=== PATIENT | male | born 1955 | race Caucasian/White ===

== ENCOUNTER 2016-10-22 15:41 | Inpatient (IN) | payer OTHER ==
[~2016-10-22] VITALS: Ht 157.5 cm; Wt 68.0 kg
--- NOTE | 2016-10-22 15:50 | NUR ---
PT IS A 61 YEAR OLD MALE, PRESENTS TO ED [facility] WITH C/O GENERALIZED WEAKNESS AND HIGH BP. ON SCENE BS WAS 76. PT DENIES ANY PAIN. PT REPORTS PRESSURE ON TOP OF HEAD. PT REPORTS NAUSEA AT THIS TIME. PT REPORTS SLGITH DIZZINESS. BREATHING IS EVEN AND UNLABORED, NO S/S OF RESPRAITORY DISTRESS. SPEECH IS CLEAR AND APPROPRIATE. PT A/O X4. 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
[2016-10-22 16:39] LABS: BASOPHIL % 0.4 % (0-2); PLATELET COUNT 325 x10^3mcL (130-400); RED CELL DISTRIBUTION WIDTH 14.2 % (11.5-14.5)
[2016-10-22 16:48] LABS: CALCIUM 8.6 mg/dL (8.5-10.1); CARBON DIOXIDE 25.8 mmol/L (21-32); CHLORIDE SERUM 105 mmol/L (98-107); CREATININE SERUM 0.9 mg/dL (0.7-1.3); GFR1 > 60 mL/min; GLUCOSE SERUM 98 mg/dL (74-106); POTASSIUM SERUM 3.9 mmol/L (3.5-5.1); SODIUM SERUM 142 mmol/L (136-145)
[2016-10-22] MEDS ORDERED: LOVASTATIN20 MG PO (22:53)
[2016-10-22] MEDS ORDERED: LISINOPRIL5 MG PO (22:53)
[2016-10-22] MEDS ORDERED: FINASTERIDE5 M1 PO (22:54)
--- NOTE | 2016-10-22 22:58 | NUR ---
SEE DOWNTIME CHARTING
--- NOTE | 2016-10-22 23:59 | NUR ---
PT RESTING IN BED COMFORTABLY AT THIS TIME ASLEEP. NO S/S OF DISTRESS NOTED AT THIS TIME.
--- NOTE | 2016-10-22 23:59 | NUR ---
SEE DOWNTIME NOTES.
--- NOTE | 2016-10-23 03:40 | NUR ---
NO S/S OF PAIN OR DISTRESS NOTED. PT ASLEEP COMFORTABLY AT THIS TIME.
[2016-10-23 06:37] VITALS: BP 114/68
[2016-10-23 07:26] LABS: BASOPHIL % 0.5 % (0-2); PLATELET COUNT 283 x10^3mcL (130-400)
[2016-10-23 07:30] LABS: RED CELL DISTRIBUTION WIDTH 14.8 % (11.5-14.5)
[2016-10-23 07:54] LABS: CALCIUM 8.1 mg/dL (8.5-10.1); CARBON DIOXIDE 26.2 mmol/L (21-32); CHLORIDE SERUM 110 mmol/L (98-107); GFR1 > 60 mL/min; GLUCOSE SERUM 92 mg/dL (74-106); MAGNESIUM 2.1 mg/dL (1.8-2.4); PHOSPHOROUS 3.7 mg/dL (2.5-4.9); POTASSIUM SERUM 4.2 mmol/L (3.5-5.1); SODIUM SERUM 143 mmol/L (136-145)
--- NOTE | 2016-10-23 08:50 | NUR ---
PT VOICES WORRY DUE TO DISEASE PROCESS. VOICES HE IS AFRAID HE WILL NOT BE ABLE TO SUPPORT HIS FAMILY DUE TO HEALTH STATUS. PROVIDED [employer]. PT VOICES SOME RELIEF FOR LISTENING. CALL LIGHT WITHIN REACH.
[2016-10-23 10:20] VITALS: BP 147/93
--- NOTE | 2016-10-23 10:59 | NUR ---
ECHO IN PROGRESS. PT TOLERATING PROCEDURE WELL. TECH AT BEDSIDE.
--- NOTE | 2016-10-23 11:50 | NUR ---
ECHOCARDIOGRAM COMPLETED.
[2016-10-23 14:05] VITALS: BP 136/88
[2016-10-23 15:16] LABS: microscopic required? NO
--- NOTE | 2016-10-23 15:30 | NUR ---
UA SPECIMEN COLLECTED. TAKEN TO LAB.
--- NOTE | 2016-10-23 17:20 | NUR ---
PT IN FOWLERS, NO DISTRESS NOTED. PT ALERT ORIENTEDx4. DENIES HEADACHE, DIZZINESS. FOLLOWS COMMAND, SPEECH CLEAR. PT STATES FEELING MUCH BETTER THAN IN A.M. IV INFUSING WELL TO LAC. CALL LIGHT WITHIN REACH.
[2016-10-23 17:22] LABS: urine erythrocyte NEGATIVE (NEGATIVE)
[2016-10-23 17:24] LABS: AMPHETAMINE QUAL UR NONE DETECTED (NEG <=1000)
[2016-10-23 17:28] VITALS: BP 115/67
[2016-10-23 17:47] LABS: ALBUMIN 3.8 g/dL (3.4-5.0); PHOSPHOROUS 3.7 mg/dL (2.5-4.9); TOTAL PROTEIN, SERUM 7.9 g/dL (6.4-8.2)
[2016-10-23 17:48] LABS: ALKALINE PHOSPHATASE 94 U/L (46-116); ALT/SGPT 118 U/L (16-63); AST/SGOT 90 U/L (15-37); BILIRUBIN TOTAL 0.21 mg/dL (0.20-1.00); CHOLESTEROL 203 mg/dL (<200); HDL CHOLESTEROL 42 mg/dL (40-60); MAGNESIUM 2.2 mg/dL (1.8-2.4)
--- NOTE | 2016-10-23 20:19 | NUR ---
PT SEATED UP IN A CHAIR AT BEDSIDE DENIES DIZZINESS HAS SOME HEADACHE BEARABLE 3/10 PER PAIN ASSESSMENT V/S ON STABLE RANGE OFFERED SOME PAIN MEDS PT REFUSED WILL CALL THE NURSE IF PAIN PERSIST, PT KNOWS PRESENT PRESIDENT, TIME DATE AND YEAR ALSO CAN RECALL FAMILY MEMBERS NAME AND OWN BIRTHDAY, ABLE TO RECALL ACTIVITIES PRIOR COMING TO HOSP, DENIES NAUSEA OR VOMITING, NO CP OR PRESSURE TELE # 42 INPLACED SR IN THE MONITOR, IVF NS INFUSING @ 100CC/HR IV ACCESS @ LAC PATENT NON INFIL, REFUSED TO WEAR SCD'S AT THIS TIME, SKIN CDI, SHIFT ASSESSMENT DONE ATTENDED NEEDS CALL LIGHT AT REACH, CONT TO MONITOR.
[2016-10-23 21:38] VITALS: BP 119/68
[2016-10-24 05:49] VITALS: BP 118/68
--- NOTE | 2016-10-24 05:53 | NUR ---
NO SIGNIFICANT CHANGES DURING THE SHIFT, ABLE TO RECALL PREV ACTIVITIES, STRESSED SAFETY PREC, REMINDED TO USE THE CALL LIGHT FOR ASSISTANCE, CONT TO MONITOR.
[2016-10-24 07:19] LABS: BASOPHIL % 0.6 % (0-2); PLATELET COUNT 290 x10^3mcL (130-400); RED CELL DISTRIBUTION WIDTH 14.5 % (11.5-14.5)
[2016-10-24 07:30] LABS: CARBON DIOXIDE 24.9 mmol/L (21-32); CHLORIDE SERUM 110 mmol/L (98-107); CREATININE SERUM 0.9 mg/dL (0.7-1.3); GFR1 > 60 mL/min; GLUCOSE SERUM 93 mg/dL (74-106); POTASSIUM SERUM 3.8 mmol/L (3.5-5.1); SODIUM SERUM 142 mmol/L (136-145)
--- NOTE | 2016-10-24 08:45 | NUR ---
MEDICAL TEAM IN TO SEE PT. PT CALM AND RECEPTIVE OF CARE. VOICING HEALTH CONCERNS. WILL CONTINUE TO MONITOR.
[2016-10-24 09:41] VITALS: BP 145/79
--- NOTE | 2016-10-24 10:30 | NUR ---
PASSED MORNING MEDS. PT TOLERATED WELL. A&Ox4 EFFORTLESS BREATHING. NO DISTRESS NOTED. CALL LIGHT WITHIN REACH.
[2016-10-24] MEDS ORDERED: LISINOPRIL5 MG PO (13:22)
[2016-10-24] MEDS ORDERED: ASPIR 8181 MG PO (13:23)
[2016-10-24 14:11] VITALS: BP 145/79
--- NOTE | 2016-10-24 15:40 | NUR ---
DISCHARGE INSTRUCTIONS GIVEN TO PT. PT VERBALIZED UNDERSTANDING FOR FOLLOW UP APPOINTMENT AND PRESCRIPTION ORDERS. IV DC'D PT TOLERATED WELL, CATHETER INTACT, TELE BOX REMOVED. PT ESCORTED OUT OF UNIT SAFELY.
== END 2016-10-24 15:57 | disposition home or self-care (01) | DRG 199 ==
LOC: ED 15:41 → DU 18:45
PROVIDERS: Emergency Medicine; Family Medicine; ADMIT Family Medicine
DX: I16.0 Hypertensive urgency (principal); G93.41 Metabolic encephalopathy; G45.9 Transient cerebral ischemic attack, unspecified; E87.8 Other disorders of electrolyte and fluid balance, not elsewhere classified; G90.8 Other disorders of autonomic nervous system; I10 Essential (primary) hypertension; E78.5 Hyperlipidemia, unspecified; F17.200 Nicotine dependence, unspecified, uncomplicated; I08.1 Rheumatic disorders of both mitral and tricuspid valves
CPT/HCPCS: J7030; J8597; Q0092